=== PATIENT | female | born 1985 | race Caucasian/White ===

== ENCOUNTER 2021-11-14 05:53 | Day surgery (SDC) | payer OTHER, SELFPAY ==
[2021-10-29 08:31] VITALS: BMI 28.3
--- NOTE | 2021-10-29 09:24 | SUR.PREOP ---
PRE-OPERATIVE [address] [address] 1. Report to the Surgery Center Waiting Room, the entrance is the first door on the right after passing through the automatic sliding doors, at time ___0600___on date_11/14/2021_. OR Time:___729__ . When you arrive, you and your visitor will be screened for Covid prior to entry. A mask is required within the surgery center. 2. Patients may have clear liquids (water, carbonated beverages, clear teas, apple juice) until 3 hours prior to surgery with a maximum of 20 ounces. ? No food from midnight until time of surgery. ? Infants may have breast milk until 4 hours before surgery, formula 6 hours prior to surgery. ? Children will be allowed to drink immediately following surgery. If applicable, please bring a bottle or sippy cup to assist with drinking. Juice, water, soda, and popsicles are readily available. For infants on formula, please bring formula the day of surgery. Pacifiers are allowed. 3. Take the following medications with a SIP of water the morning of surgery: 1. n/a 2. 3. Medications to discontinue per physician order: 1. n/a date to discontinue: 4. No make-up, nail surinamese, hairspray, perfume, deodorant, or body powder the day of surgery. No jewelry (including any body piercings) or valuables the day of surgery. Please take a shower or bath the night before, or the morning of, surgery with an antibacterial soap. Wear comfortable, loose fitting clothing. Children are encouraged to wear pajamas. ? Jewelry must be removed prior to entering the operating room. Rings and piercings that are not removed will be cut off. The center will not accept responsibility for valuables. Please leave all valuables, including medications, at home the day of surgery. 5. When going home after surgery, a licensed delivery truck driver heavy must drive you home. NO public transportation without another adult. We recommend someone to stay with you, no alcoholic beverages, driving or important decision making for 24 hours after surgery. For pediatric surgeries, we recommend two adults to accompany a child home. (Only one will be allowed into the building with the patient) 6. 1 visitor (over age of 18) will be allowed. The visitor will drop patient off and remain in car until patient is prepared for surgery. Visitor will be called to join patient. Exceptions: Adult of a pediatric patient, patients with intellectual and/or developmental disability or cognitive impairments can accompany patient through-out visit. Visitors will need to be screened prior to coming into the center. Screening will include Covid symptom question checking. Visitor must wear a mask. Visitor will remain in patient?s room for duration of stay. 7. If you or anyone in your household have experienced Covid symptoms in the past week, please notify your surgeon or surgery center at phone number below for possible testing. 8. Follow any additional instructions given by your physician. Telephone instructions given to: patientArturo and asked if any additional questions and then verbalized understanding. Patient advised to call surgeon office or the surgery center at [phone] if any additional questions.
[2021-11-14] VITALS (8 sets, daily range): BP systolic 104–116; BP diastolic 64–77; PULSE 78–99; RESP 13–17; TEMP 36.2–36.7; O2SAT 94–100; BMI 30.3
[2021-11-14] MEDS: LACTATED RINGERS 1,000 ML 30 ML IV CONT ×2 (06:43→10:31)
--- NOTE | 2021-11-14 06:58 | WPDHPUPDATE1 ---
History and Physical Update Update Date/Time: 11/14/21 06:58 History and Physical has been reviewed, including an updated exam of the patient. There are NO changes in the patient's condition. Risks, benefits, and alternatives have been discussed and questions answered. Patient agrees to proceed with procedure.
--- NOTE | 2021-11-14 07:13 | WPDANESEPPF ---
Anes - Initial Pre Proc Eval Procedure: Operation Date: 11/14/21 07:30 Proposed Procedures p Bilateral Breast Reduction Mammoplasty - Rinku Tellez MD Date/Time: 11/14/21 07:13 Surgeon: Rinku Tellez MD Pre Op Diagnosis: Macromastia Patient Data Age: 36 Gender: F Height: 1.52 m Weight: 70.5 kg Last Vital Signs Temp 36.7 C 11/14/21 06:10 Pulse 82 11/14/21 06:10 Resp 14 11/14/21 06:10 BP 110/73 11/14/21 06:10 Pulse Ox 100 11/14/21 06:10 O2 Del Method Room Air 11/14/21 06:10 Allergies Allergy/AdvReac Type Severity Reaction Status Date / Time codeine AdvReac Severe Hallucinati Verified 11/14/21 05:58 ng ceftriaxone [From Rocephin] AdvReac Unknown Hives Verified 11/14/21 05:58 prochlorperazine AdvReac Unknown dystonia Verified 11/14/21 05:58 [From Compazine] Home Medications Medication Instructions Recorded Confirmed Type buspirone 5 mg tablet 5 mg PO PRN PRN Menstrual Pain 07/28/21 10/29/21 History docusate sodium 100 mg capsule 100 mg PO DAILY #14 caps 10/28/21 Rx (Colace) ondansetron 4 mg disintegrating 4 mg PO Q8H #21 tabs 10/28/21 Rx tablet melatonin 5 mg chewable tablet 5 mg PO HS PRN Insomnia 10/29/21 11/14/21 History oxycodone-acetaminophen 5 mg-325 1 tablet PO Q6H PRN pain #30 tabs 10/29/21 10/29/21 Rx mg tablet (Percocet) Patient hx anesthesia problems: none Family hx anesthesia problems: none Results Review: All pre-operative results and documents have been reviewed as part of the pre-operative evaluation. FOR[facility] Surgical History Surgical History History of appendectomy History of cholecystectomy History of tonsillectomy Family History Family History Father Hypertension Hyperlipidemia A-fib Mother Spontaneous subarachnoid hemorrhage Social History Social History Smoking status: Never smoker Alcohol intake: unknown Substance use: never Substance use type: does not use Living arrangements: with family Spiritual care concerns: No Anes - Eval Final PreProcedure Day of Procedure 11/14/21 07:13 Patient weight: overweight Heart: regular rate and rhythm Lungs: clear to auscultation Airway: Mallampati scale class II Neurological: alert and oriented Last oral intake: >/= 8 hours ASA classification: II Emergent: no Anesthetic plan: proceed Anesthesia type and monitoring: general LMA and standard monitoring Results Review: All pre-operative results and documents have been reviewed as part of the pre-operative evaluation. Informed Consent: The patient's anesthetic plan and its attendant risks and benefits were discussed with the patient/family/POA. Questions were solicited and answers provided to the satisfaction of the patient/family/POA.
--- NOTE | 2021-11-14 07:16 | P.OP_ITS ---
Procedure Note - Detailed Date of Procedure 11/14/21 Pre-op Diagnosis Macromastia Post-op Diagnosis Same Procedure Performed Bilateral reduction mamaplasty Surgeon Rinku Tellez MD Anesthesia General Findings Inverted T Superior medial pedicle Tissue removed: Right - 528 grams Left - 498 grams Description of Procedure She is here today for bilateral breast reduction. Previously and again today the risks, benefits, alternatives were discussed in extensive detail. I wanted her to be very realistic about the risks involved as well as expectations. We discussed aftercare and what to monitor for. She understands we can never guarantee final breast size and there will always be asymmetry. I was very upfront and honest about the risks of sensation change and even nipple loss (). Made sure answered all of her questions to her satisfaction today and consent was obtained. She was marked in the preoperative holding area with their verification. The patient was taken to the operating room placed supine on the operating table. Anesthesia was provided by anesthesiology. She was prepped and draped in a standard sterile fashion. A surgical time-out was taken. Stab incisions were made and I tumessed with a tumescent solution. I marked out the nipple-areolar complex at 42 mm. I then de-epithelialized the pedicle. The pedicle was well left well more than 2 cm in thickness. I then removed the inferior portion of the breast as well as the central keel to get shape based on preoperative planning. At this point copiously irrigated with saline solution and verified a strict hemostasis. I reapproximated the pillars using a 2-0 PDS. I tailor tacked the breast into place with ghazala. She was placed in a sitting position. I verified the nipple-areolar complex position based on preoperative markings, intraoperative measurements, and observation which were in full agreement. This nipple-areolar complex was marked at 42 mm in size. I then placed supine and de-epithelialized this. Nipple-areolar complex was inset with 3-0 Monocryl. I closed IMF deep with 1 strattafix. I closed the vertical incision with 3-0 Monocryl in the IMF with 3- 0 stratafix. Then everything was closed using a running subcuticular 4-0 Monocryl followed by Steri-Strips. A dressing was placed followed by surgical bra. Patient was awoke and taken to PACU without difficulty. All instrument sponge counts were correct at the end of the case. Estimated Blood Loss 75 Drains No Packing No Pathology Yes (Bilateral breast tissue) Complications No immediate complications Condition Stable
[2021-11-14] MEDS: SCOPOLAMINE 1.5 MG PATCH TRANSDERM (07:20)
[2021-11-14] MEDS: LACTATED RINGERS IRRIG 1,000 ML, LIDOCAINE HCL 1% LOCAL INJ 50 ML, EPINEPHrine HCL INJ ... INFILTRATE (08:19)
[2021-11-14] MEDS: HYDROmorphone HCL INJ (*CRX) 1 MG/ML SYR 0.5 MG IV PUSH ×2 (09:44→10:04)
[2021-11-14] MEDS: ONDANSETRON INJ 4 MG/2 ML VIAL IV PUSH (10:30)
--- NOTE | 2021-11-14 10:54 | SUR.PHASEII ---
1045 Pt states nausea is gone and would like to take a pain pill once she has a few crackers
[2021-11-14] MEDS: oxyCODONE HCL (*CRX) 5 MG TAB IR PO (11:14)
--- NOTE | 2021-11-14 12:16 | WPDANESPN ---
Anes - Prog Note Post-Op Date/Time: 11/14/21 12:16 Cardiovascular status: normal Respiratory status: normal Airway patency: baseline Mental status: baseline Post-Op hydration status: normal Vital Signs: Last Vital Signs Temp 36.6 C 11/14/21 10:15 Pulse 78 11/14/21 11:15 Resp 16 11/14/21 11:15 BP 110/65 11/14/21 11:15 Pulse Ox 97 11/14/21 11:15 O2 Del Method Room Air 11/14/21 11:15 O2 Flow Rate 8 11/14/21 09:29 Pain Score (VAS): 2 I/O: Intake & Output 11/13/21 11/14/21 11/14/21 23:59 07:59 15:59 Intake Total 1450 Balance 1450 Patient Feedback: Patient satisfied with anesthetic care.
== END 2021-11-14 11:38 | disposition home or self-care (01) ==
PROVIDERS: Visit Provider Surgery Plastic and Reconstructive Surgery
PROC: 0HBV0ZZ Excision of Bilateral Breast, Open Approach (ICD-10-PCS; CPT 19318; principal; 2021-11-14 07:30)
DX: N62 Hypertrophy of breast (principal)
CPT/HCPCS: 19318

== ENCOUNTER 2021-11-17 10:37 | Outpatient (NON) | payer OTHER, SELFPAY | END 2021-11-17 10:38 | disposition home or self-care (01) | LOC: ANHLAB 10:41 | PROVIDERS: Visit Provider Surgery Plastic and Reconstructive Surgery | DX: N62 Hypertrophy of breast (principal) | CPT/HCPCS: 88305 ==